=== PATIENT | female | born 1975 | race Caucasian/White ===

== ENCOUNTER 2016-09-16 13:56 | Inpatient (IN) | payer OTHER ==
[~2016-09-16] VITALS: Ht 162.6 cm; Wt 82.1 kg
[~2016-09-16 13:56] MED LIST: BENZTROPINE MESY1 MG PO; CHANTIX1 MG PO; CLEOCIN300 MG PO; ERRIN0.35 MG PO; HALDOL5 MG PO; IBUPROFEN400 MG PO; LEVOTHYROXINE100 MCG PO; LEXAPRO10 MG PO; LOSARTAN POTASS50 MG PO; METFORMIN HCL1000 MG PO; OMEPRAZOLE20 MG PO; TRAMADOL HCL50 MG PO; TRAZODONE HCL50 MG PO; VITAMIN D31000 UNI2 PO; ~No Medications
[2016-09-16 14:24] LABS: HEMATOCRIT 44.5 % (36.0-46.0); MCH 30.1 PG (29.0-34.0); MCHC 33.7 G/DL (30.0-36.0); MCV 89.4 FL (83-99); MEAN PLAT.VOLUME 12.6 uM^3 (9.5-12.4); PLATELET COUNT 171 K/uL (156-360); RBC DIS.WIDTH-CV 13.2 % (11.8-14.6); RBC DIS.WIDTH-SD 42.9 % (39-53); RED BLOOD COUNT 4.98 M/uL (3.80-5.20); WHITE BLOOD COUNT 4.4 K/uL (4.1-10.2)
[2016-09-16 14:40] LABS: CHLORIDE 104 mEq/L (99-109); POTASSIUM 3.2 mEq/L (3.7-5.4); SODIUM 141 mEq/L (136-147)
[2016-09-16 14:42] LABS: GLUCOSE 100 mg/dL (70-99)
[2016-09-16 14:43] LABS: ANION GAP 20 MEQ/L (2-14)
[2016-09-16 14:44] LABS: TOTAL BILIRUBIN 0.7 mg/dL (0.0-1.0)
[2016-09-16 14:45] LABS: SERUM ETHYL ALCOHOL < 10 mg/dL
[2016-09-16 14:46] LABS: ALKALINE PHOSPHATASE 58 IU/L (3-129); GFR ESTIMATE (CALCULATED) > 59 mL/min/
[2016-09-16 14:47] LABS: UREA NITROGEN (BUN) 8 mg/dL (9-23)
[2016-09-16 15:58] LABS: ADD MIUA? YES; BILIRUBIN NEGATIVE; BLOOD MODERATE; COLOR YELLOW ((YELLOW)); GLUCOSE (STRIP) NEGATIVE; KETONES 80; LEUKOCYTES NEGATIVE; NITRITE NEGATIVE; PROTEIN (STRIP) 100; SPECIFIC GRAVITY 1.019 (1.000-1.030)
[2016-09-16 16:00] LABS: BACTERIA RARE /HPF; EPITHELIAL CELLS 1+ /HPF; HYALINE CASTS 15-20 /LPF; MUCUS TRACE /LPF; RED BLOOD CELLS 0-5 /HPF (0-5); UNCLASSIFIED CRYSTALS 3+ /HPF; WHITE BLOOD CELLS 0-5 /HPF (0-5)
[2016-09-16 16:38] LABS: AMPHETAMINE NEGATIVE (500 ng/mL); BARBITURATES NEGATIVE (200 ng/mL); BENZODIAZEPINES NEGATIVE (150 ng/mL); COCAINE NEGATIVE (150 ng/mL); INTERNAL CONTROLS VALID? YES; METHADONE NEGATIVE (200 ng/mL); METHAMPHETAMINE NEGATIVE (500 ng/mL); OPIATES (MORPHINE) NEGATIVE (100 ng/mL); OXYCODONE NEGATIVE (100 ng/mL); PHENCYCLIDINE NEGATIVE (25 ng/mL); PROPOXYPHENE NEGATIVE (300 ng/mL); THC CANNABINOIDS NEGATIVE (50 ng/mL); TRICYCLIC ANTIDEPRESSANTS NEGATIVE (300 ng/mL)
[2016-09-16 18:09] VITALS: BP 120/81
[2016-09-16 19:20] VITALS: BP 120/81
[2016-09-17 07:32] VITALS: BP 121/83
[2016-09-17 15:33] VITALS: BP 132/83
[2016-09-18 07:43] VITALS: BP 110/66
[2016-09-18 15:31] VITALS: BP 132/76
[2016-09-19 08:02] VITALS: BP 114/90
[2016-09-19 15:45] VITALS: BP 133/60
[2016-09-20 07:42] VITALS: BP 108/58
[2016-09-20 15:18] VITALS: BP 118/71
[2016-09-21 07:41] VITALS: BP 110/58
[2016-09-21 15:37] VITALS: BP 109/56
[2016-09-22 07:48] VITALS: BP 121/64
[2016-09-22 15:23] VITALS: BP 136/63
[2016-09-23 07:34] VITALS: BP 106/71
[2016-09-23 15:39] VITALS: BP 122/74
[2016-09-24 07:22] VITALS: BP 129/67
[2016-09-24 15:25] VITALS: BP 118/73
[2016-09-25 07:38] VITALS: BP 118/66
[2016-09-25 15:11] VITALS: BP 117/68
[2016-09-26 07:45] VITALS: BP 146/68
[2016-09-26 15:31] VITALS: BP 120/66
[2016-09-27 07:48] VITALS: BP 145/88
[2016-09-27 15:27] VITALS: BP 129/61
[2016-09-28 07:33] VITALS: BP 141/65
[2016-09-28 15:27] VITALS: BP 140/92
[2016-09-29 07:32] VITALS: BP 118/77
[2016-09-29 15:43] VITALS: BP 118/78
[2016-09-30 07:50] VITALS: BP 134/76
[2016-09-30 15:04] VITALS: BP 138/80
[2016-10-01 07:49] VITALS: BP 130/64
[2016-10-01 15:10] VITALS: BP 121/76
[2016-10-02 07:45] VITALS: BP 124/79
[2016-10-02 15:13] VITALS: BP 130/64
[2016-10-03 07:24] VITALS: BP 144/74
[2016-10-03 15:39] VITALS: BP 137/75
[2016-10-04 07:39] VITALS: BP 128/79
[2016-10-04] MEDS ORDERED: DIVALPROEX SOD500 MG PO (09:55)
[2016-10-04] MEDS ORDERED: METHYLPHENIDATE5 MG PO ×2 (09:55)
[2016-10-04] MEDS ORDERED: ESCITALOPRAM OX20 MG PO (09:55)
[2016-10-04] MEDS ORDERED: RISPERDAL2 MG PO (09:55)
== END 2016-10-04 15:04 | disposition home or self-care (01) | DRG 885 ==
LOC: EME 13:56 → EDOF 16:27 → 1WEST 16:27
PROVIDERS: Emergency Medicine
DX: F25.0 Schizoaffective disorder, bipolar type (principal); Z56.0 Unemployment, unspecified; Z73.6 Limitation of activities due to disability; Z91.14 Patient's other noncompliance with medication regimen; F94.0 Selective mutism; Z60.2 Problems related to living alone; G89.29 Other chronic pain; E11.9 Type 2 diabetes mellitus without complications; I10 Essential (primary) hypertension; K21.9 Gastro-esophageal reflux disease without esophagitis; F17.210 Nicotine dependence, cigarettes, uncomplicated; L68.0 Hirsutism; R45.1 Restlessness and agitation; R45.850 Homicidal ideations
CPT/HCPCS: 80053; 80164; 81003; 85027; 90837; 97150 GO; 97166 GO; 99281; 99285; G0480; J2794

== ENCOUNTER 2016-10-18 13:36 | Inpatient (IN) | payer OTHER ==
[~2016-10-18] VITALS: Ht 162.6 cm; Wt 84.7 kg
[~2016-10-18 13:36] MED LIST changes: +DIVALPROEX SOD500 MG PO; +ESCITALOPRAM OX20 MG PO; +METHYLPHENIDATE5 MG PO; +RISPERDAL2 MG PO
[2016-10-18 15:29] LABS: HEMATOCRIT 38.1 % (36.0-46.0); MCH 30.3 PG (29.0-34.0); MCHC 32.3 G/DL (30.0-36.0); MCV 93.8 FL (83-99); MEAN PLAT.VOLUME 10.3 uM^3 (9.5-12.4); PLATELET COUNT 279 K/uL (156-360); RBC DIS.WIDTH-CV 15.3 % (11.8-14.6); RBC DIS.WIDTH-SD 53.1 % (39-53); RED BLOOD COUNT 4.06 M/uL (3.80-5.20); WHITE BLOOD COUNT 7.7 K/uL (4.1-10.2)
[2016-10-18 15:36] LABS: CHLORIDE 110 mEq/L (99-109); POTASSIUM 4.2 mEq/L (3.7-5.4); SODIUM 141 mEq/L (136-147)
[2016-10-18 15:37] LABS: GLUCOSE 84 mg/dL (70-99)
[2016-10-18 15:39] LABS: ANION GAP 5 MEQ/L (2-14)
[2016-10-18 15:41] LABS: GFR ESTIMATE (CALCULATED) > 59 mL/min/; SERUM ETHYL ALCOHOL < 10 mg/dL
[2016-10-18 15:43] LABS: UREA NITROGEN (BUN) 14 mg/dL (9-23)
[2016-10-18 15:44] LABS: SALICYLATE < 5.0 MG/DL (15-30)
[2016-10-18 19:07] VITALS: BP 128/75
[2016-10-18] MEDS ORDERED: DEPAKOTE500 MG PO (19:42)
[2016-10-18] MEDS ORDERED: LEXAPRO20 MG PO (19:42)
[2016-10-18] MEDS ORDERED: RISPERDAL1 MG PO (19:43)
[2016-10-18] MEDS ORDERED: METHYLPHENIDATE5 MG PO (19:46)
[2016-10-19 07:57] VITALS: BP 116/68
[2016-10-19 15:16] VITALS: BP 108/60
[2016-10-20 07:39] VITALS: BP 124/58
[2016-10-20 15:28] VITALS: BP 117/65
[2016-10-21 07:45] VITALS: BP 102/65
[2016-10-21 15:34] VITALS: BP 121/62
[2016-10-22 07:23] VITALS: BP 123/60
[2016-10-22 15:35] VITALS: BP 115/62
[2016-10-23 07:47] VITALS: BP 156/73
[2016-10-23 15:26] VITALS: BP 113/77
[2016-10-24 07:43] VITALS: BP 106/55
[2016-10-24 15:17] VITALS: BP 127/68
[2016-10-25 07:57] VITALS: BP 118/60
[2016-10-25 15:26] VITALS: BP 120/59
[2016-10-26 07:54] VITALS: BP 106/67
[2016-10-26 16:26] VITALS: BP 122/63
[2016-10-27 07:42] VITALS: BP 106/57
[2016-10-27 15:58] VITALS: BP 114/64
[2016-10-28 07:43] VITALS: BP 123/66
[2016-10-28] MEDS ORDERED: RISPERDAL2 MG PO (09:34)
[2016-10-28] MEDS ORDERED: DIVALPROEX SOD500 MG PO ×2 (09:34)
[2016-10-28] MEDS ORDERED: LEXAPRO20 MG PO (09:34)
== END 2016-10-28 12:04 | disposition home or self-care (01) | DRG 885 ==
LOC: EME 13:36 → EDOF 17:29 → 1WEST 17:29
PROVIDERS: Emergency Medicine
DX: F25.0 Schizoaffective disorder, bipolar type (principal); R45.851 Suicidal ideations; R45.1 Restlessness and agitation; E11.9 Type 2 diabetes mellitus without complications; I10 Essential (primary) hypertension; K21.9 Gastro-esophageal reflux disease without esophagitis; F17.210 Nicotine dependence, cigarettes, uncomplicated; F22 Delusional disorders; Z60.2 Problems related to living alone; Z91.14 Patient's other noncompliance with medication regimen; Z56.0 Unemployment, unspecified; Z73.6 Limitation of activities due to disability
CPT/HCPCS: 80048; 80164; 80306 90; 85027; 90837; 97150 GO; 97166 GO; 99281; 99285; G0480; J2794

== ENCOUNTER 2016-10-28 14:04 | Emergency (ER) | payer OTHER ==
[~2016-10-28] VITALS: Ht 157.5 cm; Wt 185.0 kg
[~2016-10-28 14:04] MED LIST changes: +DEPAKOTE500 MG PO; +LEXAPRO20 MG PO; +RISPERDAL1 MG PO
[2016-10-28 16:41] VITALS: BP 118/76
== END 2016-10-28 16:42 | disposition home or self-care (01) ==
LOC: EME 14:04
DX: F32.9 Major depressive disorder, single episode, unspecified (principal); F17.200 Nicotine dependence, unspecified, uncomplicated
CPT/HCPCS: 99281; 99285; G0480